=== PATIENT | male | born 1970 | race Two or more races ===

== ENCOUNTER 2023-04-06 16:07 | Emergency (ER) | payer OTHER ==
[~2023-04-06] VITALS: Ht 160 cm; Wt 67.6 kg
== END 2023-04-06 18:36 | disposition home or self-care (01) ==
LOC: ER 16:07
DX: I10 Essential (primary) hypertension (principal)

== ENCOUNTER 2023-05-07 21:56 | Emergency (ER) | payer OTHER ==
[~2023-05-07] VITALS: Ht 165.1 cm; Wt 71.2 kg
[2023-05-07] MEDS ORDERED: METFORMIN HCL500 M4 PO (22:25)
== END 2023-05-07 23:36 | disposition home or self-care (01) ==
LOC: ER 21:56
DX: S81.812A Laceration without foreign body, left lower leg, initial encounter (principal); W45.8XXA Other foreign body or object entering through skin, initial encounter; Y93.89 Activity, other specified; Y92.89 Other specified places as the place of occurrence of the external cause; Y99.9 Unspecified external cause status